=== PATIENT | male | born 1930 | race Caucasian/White ===

== ENCOUNTER 2017-07-25 09:11 | Emergency (ER) | payer MEDICARE, OTHER ==
[~2017-07-25] VITALS: Ht 162.6 cm; Wt 75.9 kg
[2017-07-25 09:12] VITALS: Ht 162.6 cm; Wt 75.9 kg
--- NOTE | 2017-07-25 09:32 | ERD ---
ER Documentation Chief Complaint Chief Complaint left shoulder and arm pain x 4 days HPI This is an 87-year-old male who is presenting with 4 days of left-sided shoulder and arm pain. The patient does not endorse any evidence of trauma or injury. He has not had any extra exertion. He has not had any heavy lifting. He is not lifting grocery bags or put away dishes or close. He does endorse chronic neck and back pain with occasional shoulder discomfort. He is come into the emergency department and past and received Toradol with improvement of his arthritis. He requests Toradol today. Patient has no other complaints. The patient denies feeling sick recently. The patient denies fever or chills. The patient has had no headache or vision changes. The patient does not endorse neck or back pain. The patient denies lightheadedness or dizziness. The patient has had no chest pain or shortness of breath or trouble breathing. The patient denies nausea or vomiting. The patient denies abdominal pain or changes to bowel movements or urination. The patient has had no focal deficits. The patient has had no weakness or numbness or tingling to the face or extremities. ROS All systems reviewed and are negative except as per history of present illness. Medications Home Meds No Active Prescriptions or Reported Meds Allergies Allergies: Coded Allergies: No Known Drug Allergies (Verified Allergy, Unknown, 07/25/17) PMhx/Soc History of Surgery: No Anesthesia Reaction: No Hx Neurological Disorder: No Hx Respiratory Disorders: No Hx Cardiac Disorders: No Hx Psychiatric Problems: Yes (ANXIETY) Hx Miscellaneous Medical Probl: Yes (CHRONIC BACK PAIN) Hx Alcohol Use: No Hx Substance Use: No Hx Tobacco Use: No FmHx Family History: No coronary disease, No diabetes Physical Exam Vitals Vital Signs Date Time Temp Pulse Resp B/P Pulse Ox O2 Delivery O2 Flow Rate FiO2 07/25/17 09:57 100 17 155/77 100 Room Air 07/25/17 09:12 98.9 110 18 175/73 98 Physical Exam Const: No apparent distress, well-developed, well-nourished Head: Normocephalic, Atraumatic Eyes: Normal Conjunctiva. Extraocular movements intact. Pupils equal, round and reactive to light ENT: Normal External Ears, Nose and Mouth. Neck: Full range of motion. No meningismus. Resp: Clear to auscultation bilaterally, No wheezes, rales or rhonchi Cardio: Regular rate and rhythm. No murmurs, rubs or gallops Abd: Soft, non tender, non distended. Normal bowel sounds Skin: No petechiae or rashes Back: No midline tenderness. No CVA tenderness Ext: No cyanosis, or edema. Limited range of motion and pain to the left shoulder, specifically with abduction greater than 90. Neur: Awake and alert, oriented 4. Cranial nerves intact. No facial droop. Normal strength, sensation and coordination. Psych: Normal Mood and Affect Results 24 hrs Current Medications Medications (Trade) Dose Ordered Sig/Gerard Route PRN Reason Start Time Stop Time Status Last Admin Dose Admin Ketorolac Tromethamine (Toradol) 15 mg ONCE STAT IM 07/25/17 10:38 07/25/17 10:39 DC 07/25/17 10:51 Ketorolac Tromethamine (Toradol) 15 mg STK-MED ONCE .ROUTE 07/25/17 10:38 07/25/17 10:39 DC Procedures/MDM MDM The patient's presentation warrants further investigation. The patient's symptoms are most consistent with arthritis. However, an EKG will be obtained to evaluate for any possible cardiac etiology. I have very low suspicion. The patient does not endorse any chest pain or radiating pain. He is not diaphoretic or short of breath or lightheaded or nauseated. The patient's pain is exacerbated with shoulder movement and it is nonradiating. The patient's pain is reproducible over the acromioclavicular joint. EKG EKG read by me: Rate/Rhythm: Regular rate and rhythm at a rate of 99bpm Intervals: Normal [place]: left axis Impression: Normal repolarization, No evidence of ischemia or arrhythmia IMAGING CT C-spine IMPRESSION: 1. No acute fracture or traumatic malalignment. 2. Multilevel cervical spondylosis/degenerative enthesopathy more evident at C5 -C6. 3. Bulky bridging ventral osteophytes at C2-C3 through C7-T1. At C5-C6: Moderate central canal stenosis with mild flattening of the thecal sac. Moderately severe bilateral neural foraminal stenosis left greater than right. At C4-C5: Mild to moderate central canal stenosis. Mild left neural foraminal stenosis. Electronically viewed and signed by .Gabriele Madrigal MDMD on 07/25/2017 10:16 CXR Bones: Bone density appears slightly decreased. Bony cortices are smooth and contiguous. Adjacent ribs are unremarkable. Joint(s): Intact. Mild degenerative changes of the bilateral acromioclavicular joints are observed. Soft tissues: Grossly unremarkable. IMPRESSION: Mild degenerative changes of the bilateral acromioclavicular joints. Otherwise, unremarkable. Bilateral shoulder x-rays. Electronically viewed and signed by .Dee Pinto MD, on 07/25/2017 10:43 TREATMENT/DISPOSITION The patient was given toradol in the ER with improvement of symptoms. The patient's presentation and x-ray imaging does correlate with degenerative disease of the acromioclavicular joints. The patient's CT scan of the cervical spine also reveals significant degenerative disease that may contribute to his discomfort as well. The patient may take Tylenol or ibuprofen at home. At this time, I feel that the patient stable for discharge. The patient will need follow-up with his primary care physician in 2-3 days. The patient will be given strict precautions with which to return to the emergency department. The patient's blood pressure was elevated at greater than 120/80 while in the emergency department. The patient was otherwise stable with no evidence of hypertensive urgency or emergency or end organ damage. The patient does not require admission for blood pressure control. I have discussed with the patient the risks of hypertension. I have advised the patient to follow up with the primary care physician for outpatient monitoring and treatment for hypertension in 2-3 days. I have instructed the patient to return to the ER for any new or worsening symptoms including chest pain, shortness of breath, headache, blurred vision, confusion, nausea, vomiting or LOC. Disclaimer: Inadvertent spelling and grammatical errors are likely due to EHR/ dictation software use and do not reflect on the overall quality of patient care. Note that the electronic time recorded on this note does not necessarily reflect the actual time of the patient encounter. 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
[2017-07-25 09:57] VITALS: BP 155/77; PULSE 100; RESP 17
--- NOTE | 2017-07-25 10:17 | RADRPT ---
PROCEDURE: CT Cervical Spine. CLINICAL INDICATION: Neck and shoulder pain. TECHNIQUE: A CT of the cervical spine was performed on a multi-slice CT scanner utilizing high-res olution axial imaging from the skull base through the cervical thoracic junction. Sagittal, coronal , and multiplanar reformatted images were made. CTD I: 21.61 mGy and DLP:398.17 mGy-cm. DICOM images are available. One or more of the following dose reduction techniques were used: Automated exposure control. Adjustment of the mA and/or kV according to patient size. Use of iterative reconstruction technique. COMPARISON: None FINDINGS: Bulky bridging ventral osteophytes are seen throughout the cervical spine. There is slight straighte [place] of the cervical lordosis. There is no acute fracture or traumatic malalignment. The vertebral b nora heights are maintained. The surrounding soft tissues are normal in appearance. There are mild degenerative changes at the craniocervical junction. Eccentric small calcific plaques are seen at darren th carotid bulbs. C2-C3: The disc height is maintained. There is a broad-based central/left paracentral disc protrusi on, and mild facet arthropathy. There is mild asymmetric central canal stenosis. Bilateral neural fo ramina are adequately patent. C3-C4: The disc height is maintained. Disc osteophyte complex, small uncovertebral spurring and mil d facet arthropathy are seen at this level. There is mild bilateral neural foraminal stenosis right greater than left. There is mild central canal stenosis. C4-C5: The disc height is maintained. Disc osteophyte complex, prominent left-sided uncovertebral s purring and mild facet arthropathy are seen at this level. There is mild left neural foraminal steno sis. There is mild to moderate central canal stenosis. The right neural foramen is adequately patent . C5-C6: There is mild to moderate disc height loss. Disc osteophyte complex, prominent uncovertebral spurring left greater than right and mild facet arthropathy are seen at this level. There is modera tely severe bilateral neural foraminal stenosis left greater than right. There is moderate central c anal stenosis with mild flattening of the thecal sac. C6-C7: The disc height is maintained. Disc osteophyte complex, small uncovertebral spurring and mil d facet arthropathy are seen at this level. The central canal and neural foramina are adequately pat ent. C7-T1: The disc height is maintained. Disc vacuum phenomena is seen anteriorly. Small disc bulge an d mild facet arthropathy are seen at this level. The central canal and neural foramina are adequatel y patent. IMPRESSION: 1. No acute fracture or traumatic malalignment. 2. Multilevel cervical spondylosis/degenerative enthesopathy more evident at C5-C6. 3. Bulky bridging ventral osteophytes at C2-C3 through C7-T1. At C5-C6: Moderate central canal stenosis with mild flattening of the thecal sac. Moderately severe bilateral neural foraminal stenosis left greater than right. At C4-C5: Mild to moderate central canal stenosis. Mild left neural foraminal stenosis. RPTAT: EE .Gabriele Madrigal MD, MD Date Time Electronically viewed and signed by .Gabriele Madrigal MD, on 07/25/2017 10:16 .O/
[2017-07-25] MEDS ORDERED: KETOROLAC 15 MG INJ IM STA (10:38)
[2017-07-25] MEDS ORDERED: KETOROLAC 15 MG INJ ONE (10:38)
--- NOTE | 2017-07-25 10:43 | RADRPT ---
PROCEDURE: XR Shoulder. CLINICAL INDICATION: Pain. TECHNIQUE: Right and left shoulder x-rays, 3 views. COMPARISON: None. FINDINGS: Bones: Bone density appears slightly decreased. Bony cortices are smooth and contiguous. Adjacent ri bs are unremarkable. Joint(s): Intact. Mild degenerative changes of the bilateral acromioclavicular joints are observed. Soft tissues: Grossly unremarkable. IMPRESSION: Mild degenerative changes of the bilateral acromioclavicular joints. Otherwise, unremarkable. Bilate ral shoulder x-rays. RPTAT: QQ .Dee Pinto MD, Date Time Electronically viewed and signed by .Dee Pinto MD, on 07/25/2017 10:43 .T/
== END 2017-07-25 12:10 | disposition home or self-care (01) ==
LOC: E/R 09:11
DX: M19.011 Primary osteoarthritis, right shoulder (principal); M47.812 Spondylosis without myelopathy or radiculopathy, cervical region
CPT/HCPCS: 72125; 73030; 93005; 96372; 99285; J1885

== ENCOUNTER 2018-02-15 18:22 | Emergency (ER) | END 2018-02-15 23:29 | disposition home or self-care (01) ==

== ENCOUNTER 2018-03-24 07:47 | Emergency (ER) | END 2018-03-24 12:44 | disposition home or self-care (01) ==

== ENCOUNTER 2019-03-20 09:36 | Emergency (ER) | payer MEDICARE, OTHER ==
[~2019-03-20] VITALS: Ht 160 cm; Wt 72.7 kg
[~2019-03-20 09:36] MED LIST: AMLO1CAP8 PO; CELE200C PO; CILO50TA PO; DOCU-144 PO; DUTA0.5C PO; ERGO500013 PO; ESOM40CA PO; EZET10TA31 PO; HYDR-3980 PO; MECL-77 PO; MED4DP PO; METO-407 PO; OMEG1CAP2 PO
[2019-03-20 09:40] VITALS: Ht 160 cm; Wt 72.7 kg
[2019-03-20] MEDS ORDERED: ASPIRIN 81 MG TAB PO STA (09:52)
[2019-03-20] MEDS ORDERED: NITROGLYCERIN 2% 1 GM OINT PKT TD STA (09:52)
[2019-03-20] MEDS ORDERED: NITROGLYCERIN (SL) 0.4 MG TAB SL PRN ×2 (10:00→15:00)
[2019-03-20] MEDS ORDERED: D ME PO (10:25)
--- NOTE | 2019-03-20 12:50 | ERD ---
ER Documentation Chief Complaint Chief Complaint EPIGASTRIC PAIN AFTER EATING. CHEST PRESSURE WHEN WALKING. HPI Patient is an 88-year-old male with no medical problems who presents with "problem to swallow". He said that he has been having pain over the past 2 weeks in the midsternal chest area. He said that his pain increases with walking and yesterday the pain was as bad as it is been. It got worse. He never had this before 2 weeks ago. He has had no treatment as of yet. The family is concerned for possible heart attack. The patient denies shortness of breath. He denies any acid feeling in his stomach and has never had endoscopy. Upon review of old medical records this is the patient's sixth visit to the ER since 2010. ROS All systems reviewed and are negative except as per history of present illness. Medications Home Meds Reported Medications D-Methorphan/PE/Acetaminophen (Tylenol Cold Max Day Cap[place]) 1 Each Tablet, 1 EACH PO Q8 PRN for COLD, TAB 03/20/19 Celecoxib* (Celebrex*) 200 Mg Capsule, 200 MG PO DAILY, CAP 02/15/18 Discontinued Reported Medications Meclizine Hcl* (Meclizine Hcl*) 25 Mg Tablet, 25 MG PO DAILY PRN for DIZZINESS, TAB 02/15/18 Ergocalciferol (Vitamin D2) (VITAMIN D2) 50,000 Unit Capsule, 78629 UNIT PO Q TUE, CAP 02/15/18 [place]-3 Acid Ethyl Esters (Lovaza) 1 Gm Capsule, 2 GM PO BID, CAP 02/15/18 Dutasteride* (Avodart*) 0.5 Mg Capsule, 0.5 MG PO DAILY, CAP 02/15/18 Ezetimibe* (Zetia*) 10 Mg Tablet, 10 MG PO HS, TAB 02/15/18 Esomeprazole Mag Trihydrate (Nexium) 40 Mg Capsule.dr, 40 MG PO DAILY, #30 CAP 02/15/18 Cilostazol* (Cilostazol*) 50 Mg Tablet, 50 MG PO BID, TAB 02/15/18 Amlodipine Besylate/Benazepril (Amlodipine-Benazepril 5-10 mg) 1 Each Capsule, 1 EACH PO DAILY, CAP 02/15/18 Metoprolol Tartrate* (Lopressor*) 100 Mg Tablet, 100 MG PO DAILY, #60 TAB 02/15/18 Discontinued Scripts Methylprednisolone* (Medrol* DOSE PACK) 4 Mg/Dose-Pack Tab.ds.pk, 4 MG PO . DIRECTED, #1 PACKET Prov:DIOMEDES SOSA MD 03/24/18 Docusate Sodium* (Colace*) 100 Mg Capsule, 100 MG PO TID, #30 CAP Prov:DIOMEDES SOSA MD 03/24/18 Hydrocodone/Acetaminophen ([place] 10-325 Tablet) 1 Each Tablet, 1 TAB PO Q6H PRN for PAIN, #20 TAB Prov:DIOMEDES SOSA MD 03/24/18 Meclizine Hcl* (Meclizine Hcl*) 25 Mg Tablet, 25 MG PO Q8H PRN for DIZZINESS, #20 TAB Prov:JUANI TURNER DO 02/15/18 Allergies Allergies: Coded Allergies: No Known Drug Allergies (Verified Allergy, Unknown, 03/20/19) PMhx/Soc History of Surgery: Yes (appendectomy ) Anesthesia Reaction: No Hx Neurological Disorder: No Hx Respiratory Disorders: No Hx Cardiac Disorders: No Hx Psychiatric Problems: Yes (ANXIETY) Hx Miscellaneous Medical Probl: Yes (CHRONIC BACK PAIN) Hx Alcohol Use: No Hx Substance Use: No Hx Tobacco Use: No Smoking Status: Never smoker FmHx Family History: No coronary disease Physical Exam Vitals Vital Signs Date Temp Pulse Resp B/P (MAP) Pulse Ox O2 O2 Flow FiO2 Time Delivery Rate 03/20/19 83 18 131/65 97 Room Air 11:35 (87) 03/20/19 87 18 134/56 98 Room Air 10:25 (82) 03/20/19 98.7 97 16 148/66 98 09:40 (93) Physical Exam Const: No acute distress Head: Atraumatic Eyes: Normal Conjunctiva ENT: Normal External Ears, Nose and Mouth. Neck: Full range of motion. No meningismus. Resp: Clear to auscultation bilaterally Cardio: Regular rate and rhythm, no murmurs Abd: Soft, non tender, non distended. Normal bowel sounds Skin: No petechiae or rashes Back: No midline or flank tenderness Ext: No cyanosis, or edema Neur: Awake and alert Psych: Normal Mood and Affect Result Diagram: 03/20/19 1009 03/20/19 1009 Results 24 hrs Laboratory Tests Test 03/20/19 10:09 White Blood Count 9.7 10^3/ul Red Blood Count 4.67 10^6/ul Hemoglobin 13.8 g/dl Hematocrit 42.8 % Mean Corpuscular Volume 91.6 fl Mean Corpuscular Hemoglobin 29.6 pg Mean Corpuscular Hemoglobin Concent 32.2 g/dl Red Cell Distribution Width 13.5 % Platelet Count 223 10^3/UL Mean Platelet Volume 9.3 fl Immature Granulocytes % 0.400 % Neutrophils % 75.4 % Lymphocytes % 17.8 % Monocytes % 5.3 % Eosinophils % 0.7 % Basophils % 0.4 % Nucleated Red Blood Cells % 0.0 /100WBC Immature Granulocytes # 0.040 10^3/ul Neutrophils # 7.3 10^3/ul Lymphocytes # 1.7 10^3/ul Monocytes # 0.5 10^3/ul Eosinophils # 0.1 10^3/ul Basophils # 0.0 10^3/ul Nucleated Red Blood Cells # 0.0 10^3/ul Sodium Level 145 mmol/L Potassium Level 3.9 mmol/L Chloride Level 107 mmol/L Carbon Dioxide Level 28 mmol/L Anion Gap 10 Blood Urea Nitrogen 22 mg/dl Creatinine 1.04 mg/dl Est Glomerular Filtrat Rate mL/min mL/min Glucose Level 167 mg/dl Calcium Level 9.5 mg/dl Troponin I 1.350 ng/ml Current Medications Medications Dose Sig/Gerard Start Time Status Last (Trade) Ordered Route PRN Stop Time Admin Dose Reason Admin Aspirin 162 mg ONCE STAT 03/20/19 DC 03/20/19 (Aspirin) PO 09:52 10:13 03/20/19 09:53 1 inch ONCE STAT 03/20/19 DC 03/20/19 Nitroglycerin TD 09:52 10:13 03/20/19 09:53 (Nitroglyceri n 2% Oint) 1 tab Q5M UP TO 3 03/20/19 Nitroglycerin DOSES PRN 10:00 SL .CHEST (Nitroglyceri PAIN n (Sl Tab) 0.4 Mg) Procedures/MDM EKG #1 read by me: Rate/Rhythm: Regular rate and rhythm at a rate of 92 Intervals: Normal Impression: No evidence of ischemia or arrhythmia EKG #2 read by me: Rate/Rhythm: Regular rate and rhythm at a rate of 95 Intervals: Normal Impression: No evidence of ischemia or arrhythmia Chest x-ray read by radiology. Patient is an 88-year-old male who presents with chest pain. The patient was found to have a positive troponin of 1.35 consistent with an NSTEMI. The patient had 2 EKGs which did not show ST elevations. Chest x-ray showed cardiomegaly but no pneumonia or pneumothorax. At this point I doubt pneumonia, pneumothorax, pulmonary embolism, or aortic dissection. The patient was given aspirin and nitroglycerin. The patient was accepted by Dr. Lazo at [facility] [place] for admission. Dr. Mercer the word processor operator at present hospital is aware of the patient and is happy to consult as well. At this point we do not have a cardiac Materials Assistant or on-call doctor for STEMI at [facility] so the patient will be transferred for higher level of care as well as family preference. They would prefer to be with Dr. Lazo at [place]. Critical Care: Time: 35 minutes excluding all billable procedures. Treatments/Evaluations: Close monitoring and treatment of unstable vital signs, cardiorespiratory, and neurologic status, while maintaining tight balance of fluid, respiratory, and cardiac interventions. Departure Diagnosis: Primary Impression: NSTEMI (non-ST elevated myocardial infarction) Additional Impression: Chest pain Chest pain type: chest pain due to myocardial ischemia Ischemic chest pain type: unspecified angina pectoris type Qualified Codes: I25.9 - Chronic ischemic heart disease, unspecified Condition: Serious YULI FRASER MD Mar 20, 2019 12:50
[2019-03-20 14:34] VITALS: BP 156/67; PULSE 87; RESP 12
[2019-03-20] MEDS ORDERED: ACETAMINOPHEN 325 MG TAB PO PRN (15:00)
[2019-03-20] MEDS ORDERED: morphine 2 MG INJ IV PRN (15:00)
[2019-03-20] MEDS ORDERED: ONDANSETRON 4 MG INJ IV PRN (15:00)
[2019-03-20] MEDS ORDERED: NACL 0.9% 3 ML SYG IV SCH (15:00)
[2019-03-20] MEDS ORDERED: FAMOTIDINE 20 MG INJ IV SCH (21:00)
[2019-03-21] MEDS ORDERED: ENOXAPARIN 30 MG/0.3 ML SYG SC SCH (09:00)
== END 2019-03-20 14:34 | disposition short-term general hospital (02) ==
LOC: E/R 09:36
DX: I21.4 Non-ST elevation (NSTEMI) myocardial infarction (principal); I25.9 Chronic ischemic heart disease, unspecified
CPT/HCPCS: 36415; 71045; 80048; 84484; 85025; 93005